=== PATIENT | female | born 1990 | race American Indian/Alaskan Native ===

== ENCOUNTER 2021-02-17 11:38 | Emergency (ER) | payer MEDICAID ==
[2021-02-17 13:56] LABS: Basophils % (Auto) 0.4 % (0.0-1.8); Eosinophils % (Auto) 0.1 % (0.0-4.3); Hematocrit 42.7 % (30.3-42.9); Lymphocytes # (Auto) 1.4 K/mm3 (1.2-5.4); Lymphocytes % (Auto) 27.3 % (13.4-35.0); Mean Corpuscular HGB Conc 33 % (30-34); Mean Corpuscular Volume 96 fl (79-97); Monocytes # (Auto) 0.6 K/mm3 (0.0-0.8); Monocytes % (Auto) 10.7 % (0.0-7.3); Red Blood Count 4.44 M/mm3 (3.65-5.03); Red Cell Distribution Width 15.4 % (13.2-15.2)
[2021-02-17 14:06] LABS: Blood Urea Nitrogen 8 mg/dL (7-17); Calcium 9.6 mg/dL (8.4-10.2); Hemolysis Index 24
[2021-02-17 14:10] LABS: BUN/Creatinine Ratio 13
[2021-02-17 14:55] LABS: Platelet Count 213 K/mm3 (140-440)
--- NOTE | 2021-02-17 17:05 | Emergency Department Report ---
HPI - General Chief Complaint: Psych Time Seen by Provider: 02/17/21 16:34 - HPI HPI: Room 15 The patient is a 30-year-old female present with a chief complaint of delusional behavior. The patient was reportedly hospitalized for Covid last month and af ter being discharged was reportedly having difficulty sleeping and has unpredictable behavior per the mother. Patient has been noted to be delusional, not sleeping and pacing. When asked what made her come to the emergency department the patient just stands there and does not reply. Patient denies suicidal or homicidal ideation. Patient denies auditory or visual hallucinations ED Past Medical Hx - Past Medical History Previous Medical History?: Yes Hx Psychiatric Treatment: Yes (delusional, depression) Additional medical history: MS, COVID - Surgical History Past Surgical History?: No - Family History Family history: no significant - Social History Smoking Status: Never Smoker Substance Use Type: None (Denies illicit drug use) ED Review of Systems ROS: Stated complaint: HAVE NOT SLEPT IN A WEEK, DELUSIONAL, NOT FOCUSED Other details as noted in HPI Comment: Unobtainable due to pts medical conditions (Flat affect) Physical Exam - Physical Exam Vital Signs: Vital Signs 02/17/21 16:35 Temperature 98 F Pulse Rate 86 Respiratory 20 Rate Blood Pressure 140/75 [Left] O2 Sat by Pulse 99 Oximetry Physical Exam: GENERAL: The patient is well-developed well-nourished female sitting in chair eating food not appearing to be in acute distress. Flat affect HEENT: Normocephalic. Atraumatic. Extraocular motions are intact. Patient has moist mucous membranes. NECK: Supple. No meningitic signs are noted. Trachea midline CHEST/LUNGS: Clear to auscultation. There is no respiratory distress noted. HEART/CARDIOVASCULAR: Regular. There is no tachycardia. There is no gallop rub or murmur. ABDOMEN: Abdomen is soft, nontender. Patient has normal bowel sounds. There is no abdominal distention. SKIN: There is no rash. There is no edema. There is no diaphoresis. NEURO: The patient is awake and alert with flat affect. The patient is installation coordinator perative. The patient has no focal neurologic deficits. The patient has normal speech and gait. MUSCULOSKELETAL:There is no evidence of acute injury. ED Course Vital Signs 02/17/21 16:35 Temperature 98 F Pulse Rate 86 Respiratory 20 Rate Blood Pressure 140/75 [Left] O2 Sat by Pulse 99 Oximetry ED Medical Decision Making - Lab Data Result diagrams: 02/17/21 12:51 02/17/21 12:51 Laboratory Tests 02/17/21 02/17/21 02/17/21 12:51 12:51 12:51 WBC RBC Hgb Hct MCV MCH MCHC RDW Plt Count Lymph % (Auto) Dickinson % (Auto) Eos % (Auto) Baso % (Auto) Lymph # (Auto) Dickinson # (Auto) Eos # (Auto) Baso # (Auto) Seg Neutrophils % Seg Neutrophils # Sodium 142 Potassium 4.2 Chloride 105.1 Carbon Dioxide 23 Anion Gap 18 BUN 8 Creatinine 0.6 Estimated GFR > 60 BUN/Creatinine Ratio 13 Glucose 107 H Calcium 9.6 HCG, Qual Urine Color Urine Turbidity Urine pH Ur Specific [place] Urine Protein Urine Glucose (UA) Urine Ketones Urine Blood Urine Nitrite Urine Bilirubin Urine Urobilinogen Ur Leukocyte Esterase Urine WBC (Auto) Urine RBC (Auto) U Epithel Cells (Auto) Urine Bacteria (Auto) Urine Mucus Urine Yeast (Budding) Salicylates < 0.3 L Urine Opiates Screen Urine Methadone Screen Acetaminophen 5.0 L Ur Barbiturates Screen Ur Phencyclidine Scrn Ur Amphetamines Screen U Benzodiazepines Scrn Urine Cocaine Screen U Marijuana (THC) Screen Drugs of Abuse Note Plasma/Serum Alcohol 02/17/21 02/17/21 02/17/21 12:51 12:51 12:51 WBC 5.2 RBC 4.44 Hgb 14.0 Hct 42.7 MCV 96 MCH 32 MCHC 33 RDW 15.4 H Plt Count 213 Lymph % (Auto) 27.3 Dickinson % (Auto) 10.7 H Eos % (Auto) 0.1 Baso % (Auto) 0.4 Lymph # (Auto) 1.4 Dickinson # (Auto) 0.6 Eos # (Auto) 0.0 Baso # (Auto) 0.0 Seg Neutrophils % 61.5 Seg Neutrophils # 3.2 Sodium Potassium Chloride Carbon Dioxide Anion Gap BUN Creatinine Estimated GFR BUN/Creatinine Ratio Glucose Calcium HCG, Qual Negative Urine Color Urine Turbidity Urine pH Ur Specific [place] Urine Protein Urine Glucose (UA) Urine Ketones Urine Blood Urine Nitrite Urine Bilirubin Urine Urobilinogen Ur Leukocyte Esterase Urine WBC (Auto) Urine RBC (Auto) U Epithel Cells (Auto) Urine Bacteria (Auto) Urine Mucus Urine Yeast (Budding) Salicylates Urine Opiates Screen Urine Methadone Screen Acetaminophen Ur Barbiturates Screen Ur Phencyclidine Scrn Ur Amphetamines Screen U Benzodiazepines Scrn Urine Cocaine Screen U Marijuana (THC) Screen Drugs of Abuse Note Plasma/Serum Alcohol < 0.01 02/17/21 02/17/21 17:00 17:17 WBC RBC Hgb Hct MCV MCH MCHC RDW Plt Count Lymph % (Auto) Dickinson % (Auto) Eos % (Auto) Baso % (Auto) Lymph # (Auto) Dickinson # (Auto) Eos # (Auto) Baso # (Auto) Seg Neutrophils % Seg Neutrophils # Sodium Potassium Chloride Carbon Dioxide Anion Gap BUN Creatinine Estimated GFR BUN/Creatinine Ratio Glucose Calcium HCG, Qual Urine Color Sylvia Urine Turbidity Cloudy Urine pH 5.0 Ur Specific [place] 1.029 Urine Protein 100 mg/dl Urine Glucose (UA) Neg Urine Ketones 20 Urine Blood Neg Urine Nitrite Neg Urine Bilirubin Neg Urine Urobilinogen 4.0 Ur Leukocyte Esterase Mod Urine WBC (Auto) 21.0 H Urine RBC (Auto) 5.0 U Epithel Cells (Auto) 27.0 H Urine Bacteria (Auto) 2+ Urine Mucus 3+ Urine Yeast (Budding) 1+ Salicylates Urine Opiates Screen Negative Urine Methadone Screen Negative Acetaminophen Ur Barbiturates Screen Negative Ur Phencyclidine Scrn Negative Ur Amphetamines Screen Negative U Benzodiazepines Scrn Negative Urine Cocaine Screen Negative U Marijuana (THC) Screen Negative Drugs of Abuse Note Disclamer Plasma/Serum Alcohol - Radiology Data Radiology results: report reviewed (CT head), image reviewed (CT head) [facility] [address] [place] [address] Cat Scan Report Signed Patient: JULIANA HEWITT MR#: [id number] : 1990 A cct:[id number] Age/Sex: 30 / F ADM Date: 02/17/21 Loc: ED Attending Dr: Ordering Physician: MAHNAZ AMANDA MD Date of Service: 02/17/21 Procedure(s): CT head/brain wo con Accession Number(s): [id number] cc: MAHNAZ AMANDA MD CT HEAD WITHOUT CONTRAST HISTORY: Delusional, odd behavior COMPARISON: None TECHNIQUE: CT imaging of the head was performed in the axial, sagittal, and coronal projections and bone algorithm in axial projection in the soft tissue algorithm. All CT scans at this location are performed using CT dose reduction for ALARA by means of automated exposure control. CONTRAST: None. FINDINGS: Cerebral and Cerebellar Hemispheres: No evidence of mass or mass effect. No midline shift. No acute hemorrhage. No acute cortical infarction. No extra-axial fluid collection. Ventricles: Normal in size and configuration for age. Osseous Structures: No significant abnormality. Visualized Paranasal Sinuses: No significant abnormality. Additional Findings: None IMPRESSION: 1. No acute intracranial abnormality. NOTE: Acute infarct may not be visible by noncontrast CT. Signer Name: North Esquivel MD Signed: 02/17/2021 7:40 PM Workstation Name: [id number] Transcribed By: WG Dictated By: North Esquivel MD Electronically Authenticated By: North Esquivel MD Signed Date/Time: 02/17 DD/ 38 TD/TT: Print Cancel - Differential Diagnosis Delusional, depression, intracranial mass, Critical care attestation.: If time is entered above; I have spent that time in minutes in the direct care of this critically ill patient, excluding procedure time. ED Disposition Clinical Impression: Psychosis, UTI (urinary tract infection) Disposition: DC/TX-65 PSY HOSP/PSY UNIT Is pt being admited?: No Does the pt Need Aspirin: No Condition: Stable Referrals: BEST DURHAM MD [Primary Care Provider] - 3-5 Days Time of Disposition: 22:00 (Awaiting acceptance)
[2021-02-17 17:34] LABS: Bacteria,Urine 2+ /HPF (Negative); Bilirubin,Urine NEG (Negative); Blood,Urine NEG (Negative); Color,Urine Amber (Yellow); Mucus,Urine 3+ /HPF
[2021-02-17 17:40] LABS: Amphetamine Screen,Urine Negative; Benzodiazepines Screen,Urine Negative; Cannabinoid Screen,Urine Negative; Cocaine Screen,Urine Negative; Methadone Screen,Urine Negative; Opiate Screen,Urine Negative
--- NOTE | 2021-02-17 19:45 | Cat Scan Report ---
CT HEAD WITHOUT CONTRAST HISTORY: Delusional, odd behavior COMPARISON: None TECHNIQUE: CT imaging of the head was performed in the axial, sagittal, and coronal projections and bone algori thm in axial projection in the soft tissue algorithm. All CT scans at this location are performed using CT dose reduction for ALARA by means of automated e xposure control. CONTRAST: None. FINDINGS: Cerebral and Cerebellar Hemispheres: No evidence of mass or mass effect. No midline shift. No acute hemorrhage. No acute cortical infarction. No extra-axial fluid collection. Ventricles: Normal in size and configuration for age. Osseous Structures: No significant abnormality. Visualized Paranasal Sinuses: No significant abnormality. Additional Findings: None IMPRESSION: 1. No acute intracranial abnormality. NOTE: Acute infarct may not be visible by noncontrast CT. Signer Name: North Esquivel MD Signed: 02/17/2021 7:40 PM Workstation Name: [id number]
[2021-02-17] MEDS: levoFLOXacin 500 MG TAB PO SCH (20:58)
--- NOTE | 2021-02-18 08:56 | Consultation ---
History of Present Illness - Reason for Consult Consult date: 02/18/21 Reason for consult: psychosis - History of Present Psychiatric Illness Per ER Note: The patient is a 30-year-old female present with a chief complaint of delusional behavior. The patient was reportedly hospitalized for Covid last month and after being discharged was reportedly having difficulty sleeping and has unpredictable behavior per the mother. Patient has been noted to be del usional, not sleeping and pacing. When asked what made her come to the emergency department the patient just stands there and does not reply. Patient denies suicidal or homicidal ideation. Patient denies auditory or visual hallucinations. Reina Skelton is a 30y/o female I evaluated today. The patient is in isolation for attempting to leave yesterday. During my evaluation, the patient appears scared and anxious. She appears to be responding to internal stimuli. Her responses are delayed or she doesn't respond at all. They are inappropriate as to the questions being asked. When I asked her what brought her to the hospital, she just states. The nurse with me says "it's okay to talk to her." The patient then responds, "yes." She also responds "yes" when asking the patient how did she feel. She then goes silent and just stands there. PAST PSYCHIATRIC HISTORY Unable to obtain SOCIAL HISTORY Unable to obtain REVIEW OF SYSTEMS Unable to obtain MENTAL STATUS EXAMINATION General Appearance and Behavior: Age appropriate, dressed appropriately, anxious Cooperation: guarded Mood: Anxious Affect and affective range: appears scared Thought Process: illogical Thought Content: responding to internal stimuli Speech: delayed Suicidal Ideation: Unable to assess Homicidal Ideation: Unable to assess Hallucinations: Auditory Delusions: Paranoia Impulse Control: Impaired Insight and Judgment: Poor insight and judgment, Memory: Poor Attention: divided Orientation: Alert, oriented Assessment and Plan (1) Acute Psychosis Treatment Plan 1013 Start Olanzapine 2.5mg po daily Start Zoloft 25mg po daily Risks, benefits and alternatives of medications discussed with the patient, questions answered and consent obtained from patient. PSYCHOTHERAPY: Supportive psychotherapy provided MEDICAL: Per primary team DELIRIUM PRECAUTIONS: Please re-orient patient frequently, keep lights on during the day, and minimize benzodiazepines and opiates as these medications could worsen patient's confusion. SHAMPOOER: Defer to primary DISPOSITION: Recommend acute inpatient psychiatric hospitalization at this time Will follow. Thank you for the consult. Please contact with any questions and/or concerns. Case staffed with Dr. Fatima Medications and Allergies Allergies Allergy/AdvReac Type Severity Reaction Status Date / Time No Known Allergies Allergy Unverified 02/17/21 12:34 Active Meds: Active Medications Levofloxacin (Levofloxacin 500 Mg Tab) 500 mg PO Q24H [facility]; Protocol Stop: 02/19/21 21:01 Last Admin: 02/17/21 20:58 Dose: 500 mg Documented by: Mental Status Exam - Vital signs Last Vital Signs Temp 98.4 F 02/17/21 19:25 Pulse 83 02/17/21 19:25 Resp 18 02/17/21 19:25 BP 114/72 02/17/21 19:25 Pulse Ox 100 02/17/21 19:25 Results Result Diagrams: 02/17/21 12:51 02/17/21 12:51 Abnormal lab results 02/17/21 02/17/21 02/17/21 Range/Units 12:51 12:51 12:51 RDW (13.2-15.2) % Lamb % (Auto) (0.0-7.3) % Glucose 107 H (65-100) mg/dL Urine WBC (Auto) (0.0-6.0) /HPF U Epithel Cells (Auto) (0-13.0) /HPF Salicylates < 0.3 L (2.8-20.0) mg/dL Acetaminophen 5.0 L (10.0-30.0) ug/mL 02/17/21 02/17/21 Range/Units 12:51 17:00 RDW 15.4 H (13.2-15.2) % Lamb % (Auto) 10.7 H (0.0-7.3) % Glucose (65-100) mg/dL Urine WBC (Auto) 21.0 H (0.0-6.0) /HPF U Epithel Cells (Auto) 27.0 H (0-13.0) /HPF Salicylates (2.8-20.0) mg/dL Acetaminophen (10.0-30.0) ug/mL All other labs normal.
--- NOTE | 2021-02-18 10:17 | Event Note ---
Date: 02/18/21 Patient is 30 years old female admitted to the ER for evaluation. Patient seclusion because of aggressive behavior and patient tried to leave the ER. Patient is currently 1013. Vital signs stable. Labs reviewed and showed UTI. Patient is already on Levaquin 500 mg daily. Waiting for inpatient psychiatric admission.
[2021-02-18] MEDS: SERTRALINE 25 MG TAB PO SCH (10:30)
[2021-02-18] MEDS: levoFLOXacin 500 MG TAB PO SCH (21:47)
[2021-02-19 07:56] VITALS: BP 101/67
--- NOTE | 2021-02-19 09:14 | Progress Note ---
Subjective - Reason for Consult Consult date: 02/19/21 Reason for consult: Psychosis - Chief Complaint Chief complaint: Per Nurse Note: Pt banging on door, yelling out, non making sense "look at you, look at me, this is a big space, I need to go talk to him over there". The patient was seen today. She is still acutely psychotic. She is pacing and walks up to me and motions her hands in a weird way. She appears anxious. But she says "good" when asked how she was doing. She is slow to respond. The nurse and the sitter say the patient has been psychotic and bizarre acting. REVIEW OF SYSTEMS Unable to obtain MENTAL STATUS EXAMINATION General Appearance and Behavior: Age appropriate, dressed appropriately, anxious Cooperation: guarded Mood: Anxious Affect and affective range: appears scared Thought Process: illogical Thought Content: responding to internal stimuli Speech: delayed Suicidal Ideation: Unable to assess Homicidal Ideation: Unable to assess Hallucinations: Auditory Delusions: Paranoia Impulse Control: Impaired Insight and Judgment: Poor insight and judgment, Memory: Poor Attention: divided Orientation: Alert, oriented Assessment and Plan (1) Acute Psychosis Treatment Plan 1013 Increase Olanzapine 5mg po daily Continue Zoloft 25mg po daily Start Depakote DR 125mg po BID Risks, benefits and alternatives of medications discussed with the patient, questions answered and consent obtained from patient. PSYCHOTHERAPY: Supportive psychotherapy provided MEDICAL: Per primary team DELIRIUM PRECAUTIONS: Please re-orient patient frequently, keep lights on during the day, and minimize benzodiazepines and opiates as these medications could worsen patient's confusion. [employer] MAKER: Defer to primary DISPOSITION: Recommend acute inpatient psychiatric hospitalization at this time Will follow. Thank you for the consult. Please contact with any questions and/or concerns. Case staffed with Dr. Fatima Mental Status Exam - Vital signs Last Vital Signs Temp 97.9 F 02/19/21 07:55 Pulse 80 02/19/21 07:55 Resp 20 02/19/21 07:55 BP 101/67 02/19/21 07:55 Pulse Ox 98 02/19/21 07:55
[2021-02-19] MEDS: SERTRALINE 25 MG TAB PO SCH (09:51)
[2021-02-19] MEDS ORDERED: DIVALPROEX DR 125 MG TAB PO SCH (10:00)
--- NOTE | 2021-02-19 10:23 | Event Note ---
Date: 02/19/21 Patient still in acute psychosis banging on the door. Vital signs stable. Labs reviewed and is unremarkable. Waiting for psychiatric admission.
== END 2021-02-19 16:03 ==
LOC: ED 11:38 → EEVIPCON 11:38 → ED 02-19 16:03
DX: F29 Unspecified psychosis not due to a substance or known physiological condition (principal); N39.0 Urinary tract infection, site not specified; F32.9 Major depressive disorder, single episode, unspecified; Z20.822 Contact with and (suspected) exposure to COVID-19
CPT/HCPCS: 36415; 70450; 80048; 80307; 81001; 84703; 85025; 87086; 99285; U0003; 80320; G0480